=== PATIENT | female | born 1990 | race Caucasian/White ===

== ENCOUNTER 2020-12-24 23:52 | Emergency (ER) | payer MEDICAID, SELFPAY ==
[2020-12-24 23:53] VITALS: BP 139/91; PULSE 122; RESP 18; TEMP 37.2; O2SAT 96; BMI 26.6
--- NOTE | 2020-12-25 00:08 | RAD_ITS ---
STUDY: X-RAY - RIGHT FOOT CLINICAL: Female, 30 years old. abscess TECHNIQUE: 3 view(s) of the foot. COMPARISON: None. FINDINGS: Normal talus, calcaneus, and tarsal bones. Normal visualized subtalar, talonavicular, calcaneocuboid, tarsal and tarsometatarsal articulations. Normal metatarsi. Normal metatarsophalangeal joint of the great toe. Normal tibial and fibular sesamoid bones. Normal interphalangeal joint of the great toe. Normal phalanges of the great toe. Normal second through fifth metatarsophalangeal joints. Normal interphalangeal joints and phalanges of the lesser toes. The soft tissue structures are unremarkable. RAD/Foot min 3 Views IMPRESSION: Normal x-ray examination of the foot. Electronically Signed: Carlyle Alan DO at 0:41 EDT Tel , Service support ,
[2020-12-25] MEDS: Cephalexin 250 MG Capsule 500 MG PO (00:11)
[2020-12-25] MEDS: Smz/Tmp Ds Tablet 1 TABLET PO (00:11)
--- NOTE | 2020-12-25 00:11 | EDS_ITS ---
HPI History of Present Illness Chief Complaint: Abscess Informant: patient Narrative Narrative: Patient has a draining abscess on the right inner foot. Is been there for 2 weeks. She admits that she injected drugs in this area couple of weeks ago. It developed an abscess and then she drained it on her own. She now has an ulcerative wound in this area. Its worse when you touch it. It still draining a clear fluid. She denies having any fevers. [facility] Medical History Anxiety Bipolar disorder Depression Diabetes Migraines Smoker Substance abuse Home Medications cephalexin 500 mg PO Q6 #40 capsule 12/25/20 [Rx Last Taken Unknown] sulfamethoxazole-trimethoprim 1 tab PO BID #14 tablet 12/25/20 [Rx Last Taken Unknown] Allergy/AdvReac Type Severity Reaction Status Date / Time No Known Allergies Allergy Verified 12/24/20 23:56 Social History Smoking Status: Current every day smoker tobacco type: cigarettes ROS ROS ED Constitutional Constitutional ED: Denies chills or fever(s) Eyes Eyes: Denies blurry vision, change in vision or diplopia ENT ENT ED: Denies ear pain, rhinorrhea or sore throat Cardiovascular Cardiovascular: Denies chest pain or palpitations Respiratory/Chest Respiratory/Chest: Denies cough, dyspnea or sputum Gastrointestinal Gastrointestinal: Denies abdominal pain, diarrhea, nausea or vomiting Genitourinary Genitourinary ED: Denies dysuria, hematuria or urinary frequency Musculoskeletal Musculoskeletal: Denies back pain or neck pain Integumentary Reports abscess Neurologic Neurologic: Denies headache(s), numbness or weakness Psychiatric Psychiatric: Denies anxiety or depression Endocrine Endocrinology: Denies polydipsia or polyuria EXAM Physical Exam Const Vital Signs: 12/24/20 23:53 Temperature 98.9 F Temperature Source Temporal Pulse Rate 122 H Respiratory Rate 18 Blood Pressure 139/91 H Blood Pressure Mean 107 Pulse Ox 96 Oxygen Delivery Method Room Air Positive well nourished and well developed General Appearance ED: well developed HEENT Reports moist mucous membranes Negative for trauma or tenderness Eyes PERRL and EOMs intact bilaterally Extremity Extremity Narrative: The right inner midfoot has a 2 x 2 centimeter ulcerative wound with some mild surrounding erythema. There is a serous drainage noted. It is minimally tender to palpation. Neuro oriented x3 and CN's II-XII intact bilaterally Sensorium / Orientation: alert Psych mental status grossly normal Skin no rashes or lesions noted MDM MDM MDM Narrative Medical decision making narrative: The patient appears to have a drained abscess with now a wound on the foot. X-rays were negative for any bony destruction. I will place the patient on Bactrim and Keflex. She will need to follow-up with wound care. Radiography Diagnostic Testing: Radiology Impression Foot X-Ray 12/25/20 00:08 IMPRESSION: Normal x-ray examination of the foot. Electronically Signed: Carlyle Alan DO at 0:41 EDT Tel , Service support , Discharge Plan Triage Chief Complaint: Abscess ED Provider: Lester Mark Dx/Rx/DC Orders Clinical Impression: Abscess of right foot Instructions: ED Abscess Antibiotic Treatment Only Prescriptions: New sulfamethoxazole-trimethoprim [sulfamethoxazole-trimethoprim] 1 TABLET tablet 1 tab PO BID Qty: 14 RF: 0 cephalexin [cephalexin] 500 MG capsule 500 mg PO Q6 Qty: 40 RF: 0 Primary Care Provider: Anika Hatfield Referrals: Anika Hatfield MD [Primary Care Provider] - Disposition Disposition: Home, self care
[2020-12-25 00:48] VITALS: BP 121/74; PULSE 84; RESP 17; O2SAT 99
== END 2020-12-25 00:50 | disposition home or self-care (01) ==
PROVIDERS: Emergency Provider Emergency Medicine
DX: L02.611 Cutaneous abscess of right foot (principal); F17.210 Nicotine dependence, cigarettes, uncomplicated
CPT/HCPCS: 73630; 99283

== ENCOUNTER 2021-01-13 02:33 | Inpatient (IN) | payer MEDICAID, SELFPAY ==
[2021-01-13] VITALS (8 sets, daily range): BP systolic 110–132; BP diastolic 65–86; PULSE 80–116; RESP 16–18; TEMP 36.4–37.1; O2SAT 96–100; BMI 32.7; BMI 32.4
[2021-01-13 03:13] LABS: Absolute Lymphocyte Count 1.65 X10^3/uL (0.83-4.51); Absolute Neutrophil Count 4.7 X10^3/uL (2.0-7.7); Basophil# 0.02 X10^3/uL; Basophil% 0.3 % (0-1); Eosinophil# 0.02 X10^3/uL; Eosinophils% 0.3 % (0-5); Hemoglobin 12.6 g/dL (12.0-15.0); Lymphocyte # 1.65 X10^3/ul (0.83-4.51); Lymphocyte % 23.2 % (19-41); Mean Corp Hgb Conc 33.2 g/dL (32-36); Mean Corpuscular Hgb 29.2 pg (27.0-32.0); Mean Corpuscular Volume 88.2 fL (81-99); Mean Platelet Vol. 9.1 fl (6.2-12.0); Monocyte# 0.68 X10^3/uL; Monocyte% 9.6 % (0-10); NRBC Flagged by Analyzer 0 % (0-5); Neutrophil # 4.71 X10^3/uL (2.7-7.7); Neutrophil % 66.2 % (47-70); Platelet Count 289 K/mm3 (150-450); RBC Distribution Width CV 12.2 % (11.6-14.6); RBC Distribution Width SD 39.7 fl (35.1-43.9); Red Blood Count 4.31 M/mm3 (4.2-5.4); White Blood Count 7.1 K/mm3 (4.4-11.0)
[2021-01-13 03:17] LABS: Internal QC Validated? YES +Cl - CLEAR BKGD
[2021-01-13 03:20] LABS: Anion Gap 7 (5-15); BUN 9 mg/dL (7-18); BUN/Creat Ratio 14.4 RATIO (10-20); Calcium,Total 8.9 mg/dL (8.5-10.1); Chloride 106 mmol/L (98-107); Creatinine, Serum 0.63 mg/dL (0.55-1.02); EST Glomerular Filtration Rate 120 mL/min (>60); Est Glom Filt Rate - Afr Amer 145 mL/min (>60); Estimated Creatinine Clearance 128.13 ml/min; Glucose 95 mg/dL (74-106); Potassium 3.5 mmol/L (3.5-5.1); Sodium Level 142 mmol/L (136-145)
--- NOTE | 2021-01-13 03:31 | EX.ED.SAOD ---
HPI History of Present Illness Chief Complaint: Substance Abuse Narrative Narrative: Patient requesting detox from heroin and fentanyl. She stated that she injects both of these regularly. Her last usage was this evening. She has been abusing narcotics since May of last year. She also uses intermittent methamphetamines. Patient requesting detox. Denies . Denies alcohol consumption. [facility] Medical History Anxiety Bipolar disorder Depression Diabetes Migraines Smoker Substance abuse Home Medications NK 01/13/21 [History Last Taken Unknown] Allergy/AdvReac Type Severity Reaction Status Date / Time No Known Allergies Allergy Verified 01/13/21 02:38 Social History Smoking Status: Current every day smoker tobacco type: cigarettes ROS ROS ED ROS Narrative ROS General: Denies fever, chills, sweats Eyes: Denies visual changes, blurred vision, double vision ENT: Denies ear pain, rhinorrhea, sore throat Cardiovascular: Denies chest pain, palpitations, heart racing Respiratory: Denies dyspnea, cough, sputum, dyspnea on exertion, orthopnea,PND GI: Denies abdominal pain, nausea, vomiting, diarrhea, constipation, melena : Denies dysuria, hematuria, frequency Musculoskeletal: Denies myalgias, arthralgias, neck pain, back pain Skin: Denies rash, abscess, abrasions Neuro: Denies headache, weakness, paresthesia Psych: Denies depression, anxiety Endo: Denies polyuria, polydipsia, polyphagia Heme: Denies easy bruising, easy bleeding, lymphadenopathy Allergy: Denies hives, swelling EXAM Physical Exam Narrative Exam Narrative: Vital signs reviewed General: Well-nourished well-developed Head: Normocephalic atraumatic Eyes: Pupils equal round and reactive to light extraocular movements intact ENT: TMs clear no hemotympanum no trauma Neck: Nontender full range of motion Cardiovascular: Regular rate rhythm no murmurs normal S1-S2 Respiratory: No distress clear to auscultation bilaterally chest nontender Abdomen: Soft nontender nondistended normal bowel sounds no masses Back: Nontender no CVA tenderness Extremities: Nontender active range of motion ?4 extremities no trauma Skin: Tract martinez noted bilateral antecubital. No acute infection Neuro alert oriented cranial nerves II through XII intact normal strength sensation reflexes Const Vital Signs: 01/13/21 02:33 01/13/21 02:34 Temperature 97.5 F L Temperature Source Temporal Pulse Rate 116 H Respiratory Rate 18 Blood Pressure 132/86 H Blood Pressure Mean 101 Pulse Ox 96 Oxygen Delivery Method Room Air MDM MDM MDM Narrative Medical decision making narrative: Lab work obtained. CBC normal. BMP normal. Alcohol negative. negative. Toxicology screen pending. Will be admitted Lab Data Labs: Laboratory Results - last 24 hr 01/13/21 01/13/21 01/13/21 02:58 02:58 02:58 WBC 7.1 RBC 4.31 Hgb 12.6 Hct 38.0 MCV 88.2 MCH 29.2 MCHC 33.2 RDW Std Deviation 39.7 RDW Coeff of Mili 12.2 Plt Count 289 MPV 9.1 Immature Gran % (Auto) 0.400 Neut % (Auto) 66.2 Lymph % (Auto) 23.2 [place] % (Auto) 9.6 Eos % (Auto) 0.3 Baso % (Auto) 0.3 Absolute Neuts (auto) 4.7 Absolute Lymphs (auto) 1.65 Nucleated RBC % 0 Sodium 142 Potassium 3.5 Chloride 106 Carbon Dioxide 29.0 Anion Gap 7 BUN 9 Creatinine 0.63 Estim Creat Clear Calc 128.13 Est GFR (MDRD) Af Amer 145 Est GFR (MDRD) Non-Af 120 BUN/Creatinine Ratio 14.4 Glucose 95 Calcium 8.9 Serum , Qual Ur Drug Screen Comment Ethyl Alcohol 4.0 01/13/21 01/13/21 02:58 02:58 WBC RBC Hgb Hct MCV MCH MCHC RDW Std Deviation RDW Coeff of Mili Plt Count MPV Immature Gran % (Auto) Neut % (Auto) Lymph % (Auto) [place] % (Auto) Eos % (Auto) Baso % (Auto) Absolute Neuts (auto) Absolute Lymphs (auto) Nucleated RBC % Sodium Potassium Chloride Carbon Dioxide Anion Gap BUN Creatinine Estim Creat Clear Calc Est GFR (MDRD) Af Amer Est GFR (MDRD) Non-Af BUN/Creatinine Ratio Glucose Calcium Serum , Qual NEGATIVE Ur Drug Screen Comment Ethyl Alcohol Discharge Plan Triage Chief Complaint: Substance Abuse ED Provider: Earl Justin Dx/Rx/DC Orders Clinical Impression: Narcotic addiction Prescriptions: No Action NK RF: 0 Primary Care Provider: Anika Hatfiedl Referrals: Anika Hatfield MD [Primary Care Provider] - Disposition Disposition: Acute Care Hospital [facility]
--- NOTE | 2021-01-13 03:32 | PCM.HP.STD ---
HPI - General General Date of Admission: 01/13/21 Date of Service: 01/13/21 Chief Complaint: Acute Opiate withdrawal HPI Narrative The patient is a 31 y/o F w/ PMHx: Obesity, Tobacco use, Anxiety and Depression/Bipolar disorder, Migrianes, Polysubstance abuse (Heroin, Fentanyl, Meth all IV, patient does not know her daily usage), ? Diabetes mellitus type II (previously on metformin) who presents to the [facility] ED on 01/13/21 w/ noted acute opiate withdrawal onset starting earlier in the evening the day prior at ~ 11 pm with abdominal pain, generalized body aches and pains, rhinorrhea, fatigue, restless leg. Patient was recently seen in the ED on 12/25/2020 secondary to abscess of the right inner foot following injection this is on Bactrim and Keflex with improvement. Patient interested in attaining clean status. Work-up in the ED included T 97.6, heart rate 116, respiratory rate 18, 96% on room air, BP 132/86, CBC with WC 7.1, hemoglobin 12.6, platelet 289 without marked shift, BMP unremarkable, negative serum testing, UDS pending upon requested evaluation of patient, ethyl alcohol level 4. [facility] Medical History (Updated 01/13/21 @ 03:[address] Laxmi Scherer MD) Anxiety Bipolar disorder Depression Diabetes Migraines Smoker Substance abuse Home Medications NK 01/13/21 [History Last Taken Unknown] Allergy/AdvReac Type Severity Reaction Status Date / Time No Known Allergies Allergy Verified 01/13/21 02:38 Family History (Updated 01/13/21 @ 03:[address] Laxmi Scherer MD) Mother Cancer Throat cancer. Father Hypertension Blood clotting disorder Surgical History (Updated 01/13/21 @ 03:[address] Laxmi Scherer MD) History of right knee surgery S/P cholecystectomy no surgical history (ADDITIONAL SURGERIES: Left femur surgery.) Social History (Updated 01/13/21 @ 03:[address] Laxmi Scherer MD) housing: homeless current occupational status: unemployed Smoking Status: Current every day smoker tobacco type: cigarettes Smoking packs per day: 1 Smoking cigarettes per day: 20.0 Years smoked: 11 Smoking pack-years: 11.00 alcohol intake: current details: Occasional EtOH intake. substance use type: heroin, IV drugs, methamphetamine and other details: Fentanyl. ROS ROS Narrative Admission Review of Systems: CONSTITUTIONAL: No weight loss, fever, + chills, weakness or fatigue. HEENT: Eyes: No visual loss, blurred vision, double vision or yellow sclerae. Ears, Nose, Throat: No hearing loss, sneezing, congestion, runny nose or sore throat. SKIN: No rash or itching, lesions, wounds. CARDIOVASCULAR: No chest pain, chest pressure or chest discomfort, palpitations, edema, orthopnea, syncopal events. RESPIRATORY: No shortness of breath, cough or sputum, wheezing, hemoptysis. GASTROINTESTINAL: + anorexia, nausea, abdominal pain, No vomiting, diarrhea, melena, BRBPR. GENITOURINARY: No dysuria, frequency, urgency or retention. NEUROLOGICAL: No headache, dizziness, syncope, paralysis, ataxia, numbness or tingling in the extremities, focal weakness, change in bowel or bladder control, seizure. MUSCULOSKELETAL: + muscle, back pain, joint pain or stiffness. HEMATOLOGIC: No anemia, bleeding or bruising. LYMPHATICS: No enlarged nodes. No history of splenectomy. PSYCHIATRIC: + history of depression or anxiety. ENDOCRINOLOGIC: + reports of sweating, cold or heat intolerance. No polyuria or polydipsia. ALLERGIES: No history of asthma, hives, eczema or rhinitis. Vital Signs Vital Signs Vital Signs: 01/13/21 02:33 01/13/21 02:34 Temperature 97.5 F L Temperature Source Temporal Pulse Rate 116 H Respiratory Rate 18 Blood Pressure 132/86 H Blood Pressure Mean 101 Pulse Ox 96 Oxygen Delivery Method Room Air Weight Weight: 208 lb 12.444 oz Body Mass Index (BMI) 32.7 Physical Exam Narrative Physical Examination: General: Awake, alert, oriented x 3 and cooperative, seated upright in the bed, fatigued, yawning, mildly restless additionally. Skin: Normal color, normal turgor, no icterus, no cyanosis except noted right inner foot status post treatment for recent abscess, healing well, no fluctuance, no drainage, track martinez to upper extremities as well. HEENT: AT/NC, EOMI, PERRLA, dry MM, no carotid bruits or JVD noted. Lungs: CTA bilaterally, moderate effort, mild decrease BL bases, no rales, ronchi or wheezing. Heart: Tachycardic with regular rhythm; no gallop, rub audible. Abdomen: Soft, mild generalized discomfort with palpation with no rebound or guarding, ND, moderately hyperactive BS, no HSM. Extremities: No cyanosis, clubbing, or edema. Neurological: Patient awake, alert, oriented as noted, cognitive function intact; pupils equally reactive to light and accommodation, cranial nerves II-XII grossly normal, moving all 4 extremities, no focal deficits, strength moderately global decrease secondary to acute presentation. Psychiatric: Affect appears fatigued, periods of restlessness, no acute evidence of depressive or anxiety feelings. Results Lab / Micro Data Result Diagrams: 01/13/21 02:58 01/13/21 02:58 Labs: Laboratory Results - last 24 hr 01/13/21 01/13/21 01/13/21 02:58 02:58 02:58 WBC 7.1 RBC 4.31 Hgb 12.6 Hct 38.0 MCV 88.2 MCH 29.2 MCHC 33.2 RDW Std Deviation 39.7 RDW Coeff of Mili 12.2 Plt Count 289 MPV 9.1 Immature Gran % (Auto) 0.400 Neut % (Auto) 66.2 Lymph % (Auto) 23.2 [place] % (Auto) 9.6 Eos % (Auto) 0.3 Baso % (Auto) 0.3 Absolute Neuts (auto) 4.7 Absolute Lymphs (auto) 1.65 Nucleated RBC % 0 Sodium 142 Potassium 3.5 Chloride 106 Carbon Dioxide 29.0 Anion Gap 7 BUN 9 Creatinine 0.63 Estim Creat Clear Calc 128.13 Est GFR (MDRD) Af Amer 145 Est GFR (MDRD) Non-Af 120 BUN/Creatinine Ratio 14.4 Glucose 95 Calcium 8.9 Serum , Qual Ur Drug Screen Comment Ethyl Alcohol 4.0 01/13/21 01/13/21 02:58 02:58 WBC RBC Hgb Hct MCV MCH MCHC RDW Std Deviation RDW Coeff of Mili Plt Count MPV Immature Gran % (Auto) Neut % (Auto) Lymph % (Auto) [place] % (Auto) Eos % (Auto) Baso % (Auto) Absolute Neuts (auto) Absolute Lymphs (auto) Nucleated RBC % Sodium Potassium Chloride Carbon Dioxide Anion Gap BUN Creatinine Estim Creat Clear Calc Est GFR (MDRD) Af Amer Est GFR (MDRD) Non-Af BUN/Creatinine Ratio Glucose Calcium Serum , Qual NEGATIVE Ur Drug Screen Comment Ethyl Alcohol Assessment & Plan Assessment/Plan (1) Opiate withdrawal: PLAN: The patient is a 31 y/o F w/ PMHx: Obesity, Tobacco use, Anxiety and Depression/Bipolar disorder, Migrianes, Polysubstance abuse (Heroin, Fentanyl, Meth) who presents to the [facility] ED on 01/13/21 w/ noted acute opiate withdrawal onset. 1. Acute Opiate Withdrawal: Will admit to [facility], routine labs including CBC, CMP, urine for drug screen obtained in the ED, will initiate and continue on protocol with tapering course of Subutex, as needed tylenol, ibuprofen, bowel regimen, gabapentin, Bentyl, Vistaril, methocarbamol, clonidine, PRN nightly trazodone for insomnia, IV fluids, IV antiemetics. Once patient clinically improved and completion of taper nearing will plan consultation with case management for transition to next level of rehabilitation care. 2. Polysubstance Abuse, IVDA Hx: Given patient IV drug use history will obtain HIV and hepatitis panel however patient currently not candidate for hep C treatment currently as needs to be clean, sober x 6 months, documented attendance NA or AA meetings, counseling and ongoing negative drug screens. 3. Questionable Diabetes mellitus type II: Noted in history, not on regimen, will obtain hemoglobin A1c, maintain until clarified on regular diet given presentation and will defer Accu-Chek with sliding scale. If A1c appropriate we will add Accu-Cheks with insulin sliding scale and transition to ADA diet. 4. Anxiety depression/bipolar disorder: Likely contributing to substance abuse history, not on regimen, will follow up with counseling and 180 with addition of regimen and counseling if appropriate. 5. Obesity: Weight loss and lifestyle changes encouraged. 6. Tobacco Abuse: Encouraged cessation, inpatient consultation per RT, NR if desired. 7. DVT prophylaxis: Low risk, encourage ambulation. Charges/Coding Visit Charges Inpatient E&M: 38330 Init Hosp L3
[2021-01-13 03:34] LABS: Pregnancy, Serum, hCG Quali. NEGATIVE Negative (0-9 Nonpreg)
[2021-01-13 03:59] LABS: Amphetamine Urine VISTA POSITIVE (<1000 ng/mL); Barbiturate Urine VISTA NEGATIVE (< 200 ng/mL); Benzodiazepine Urine VISTA NEGATIVE (< 200 ng/mL); Cocaine Urine VISTA POSITIVE (< 300 ng/mL); Ecstacy Urine VISTA POSITIVE (< 500 ng/mL); Methadone Urine VISTA NEGATIVE (< 300 ng/mL); PCP Urine VISTA NEGATIVE (< 25 ng/mL); THC Urine VISTA POSITIVE (< 50 ng/mL); Vista UDS pH Range 6
[2021-01-13] MEDS: Methocarbamol 750 MG Tablet 1500 MG PO ×3 (04:44→21:12)
[2021-01-13 04:53] LABS: HIV - WCH Non-Reactive (Nonreactive)
[2021-01-13] MEDS: Cephalexin 500 MG Capsule PO ×4 (06:00→23:59)
[2021-01-13] MEDS: Buprenorphine HCl 2 MG TAB.SUBL SL ×3 (06:00→21:12)
[2021-01-13 07:13] LABS: Hemoglobin A1c 5.2 % (3.8-5.6)
--- NOTE | 2021-01-13 07:55 | PN.HOSP_ITS ---
Subjective Subjective Patient seen and examined. She complains of also on her left foot which is due to IV drug use. She was on antibiotics on outpatient basis patient states that she has noticed some discharge from the ulcer. She also has a developing ulcer on her right forearm also due to IV drug use. She denies any fever or chills. Objective Data Objective Data Vital Signs: Vital Signs Temp Pulse Resp BP Pulse Ox 97.9 F 97 16 128/77 H 98 01/13/21 05:01 01/13/21 05:01 01/13/21 05:01 01/13/21 05:01 01/13/21 05:01 Oxygen Delivery Method Room Air Weight: 207 lb 3.752 oz Body Mass Index (BMI) 32.4 Lab / Micro Data Result Diagrams: 01/13/21 02:58 01/13/21 02:58 Labs: Laboratory Results - last 24 hr 01/13/21 01/13/21 01/13/21 02:58 02:58 02:58 WBC 7.1 RBC 4.31 Hgb 12.6 Hct 38.0 MCV 88.2 MCH 29.2 MCHC 33.2 RDW Std Deviation 39.7 RDW Coeff of Mili 12.2 Plt Count 289 MPV 9.1 Immature Gran % (Auto) 0.400 Neut % (Auto) 66.2 Lymph % (Auto) 23.2 [place] % (Auto) 9.6 Eos % (Auto) 0.3 Baso % (Auto) 0.3 Absolute Neuts (auto) 4.7 Absolute Lymphs (auto) 1.65 Nucleated RBC % 0 Sodium 142 Potassium 3.5 Chloride 106 Carbon Dioxide 29.0 Anion Gap 7 BUN 9 Creatinine 0.63 Estim Creat Clear Calc 128.13 Est GFR (MDRD) Af Amer 145 Est GFR (MDRD) Non-Af 120 BUN/Creatinine Ratio 14.4 Glucose 95 Hemoglobin A1c Calcium 8.9 Serum , Qual Urine Opiates Screen Urine Methadone Screen Ur Barbiturates Screen Ur Phencyclidine Scrn Ur Amphetamines Screen U Methamphetamin-MDMA U Benzodiazepines Scrn Urine Cocaine Screen U Cannabinoids Screen Ur Drug Screen Comment Ethyl Alcohol 4.0 HIV 1&2 Antibody 01/13/21 01/13/21 01/13/21 02:58 02:58 02:58 WBC RBC Hgb Hct MCV MCH MCHC RDW Std Deviation RDW Coeff of Mili Plt Count MPV Immature Gran % (Auto) Neut % (Auto) Lymph % (Auto) [place] % (Auto) Eos % (Auto) Baso % (Auto) Absolute Neuts (auto) Absolute Lymphs (auto) Nucleated RBC % Sodium Potassium Chloride Carbon Dioxide Anion Gap BUN Creatinine Estim Creat Clear Calc Est GFR (MDRD) Af Amer Est GFR (MDRD) Non-Af BUN/Creatinine Ratio Glucose Hemoglobin A1c 5.2 Calcium Serum , Qual NEGATIVE Urine Opiates Screen POSITIVE H Urine Methadone Screen NEGATIVE Ur Barbiturates Screen NEGATIVE Ur Phencyclidine Scrn NEGATIVE Ur Amphetamines Screen POSITIVE H U Methamphetamin-MDMA POSITIVE H U Benzodiazepines Scrn NEGATIVE Urine Cocaine Screen POSITIVE H U Cannabinoids Screen POSITIVE H Ur Drug Screen Comment Ethyl Alcohol HIV 1&2 Antibody 01/13/21 02:58 WBC RBC Hgb Hct MCV MCH MCHC RDW Std Deviation RDW Coeff of Mili Plt Count MPV Immature Gran % (Auto) Neut % (Auto) Lymph % (Auto) [place] % (Auto) Eos % (Auto) Baso % (Auto) Absolute Neuts (auto) Absolute Lymphs (auto) Nucleated RBC % Sodium Potassium Chloride Carbon Dioxide Anion Gap BUN Creatinine Estim Creat Clear Calc Est GFR (MDRD) Af Amer Est GFR (MDRD) Non-Af BUN/Creatinine Ratio Glucose Hemoglobin A1c Calcium Serum , Qual Urine Opiates Screen Urine Methadone Screen Ur Barbiturates Screen Ur Phencyclidine Scrn Ur Amphetamines Screen U Methamphetamin-MDMA U Benzodiazepines Scrn Urine Cocaine Screen U Cannabinoids Screen Ur Drug Screen Comment Ethyl Alcohol HIV 1&2 Antibody Non-Reactive Physical Exam Const alert, oriented x3 and no apparent distress Exam Limitations: no limitations HEENT head/scalp atraumatic and moist oral mucous membranes Head and Scalp: normocephalic Eyes PERRL, EOMs intact bilaterally and conjunctivae normal Neck no lymphadenopathy Resp normal respiratory effort, no retractions, no use of accessory muscles and clear to auscultation bilaterally Cardio regular rate, regular rhythm, S1 normal heart sound, S2 normal heart sound and n o murmurs GI normal to inspection, nondistended, normoactive bowel sounds, soft to palpation and non-tender Extremity normal to inspection, full ROM and no clubbing, cyanosis or edema Peripheral Pulses: Yes pulses 2+ throughout Skin no rashes or lesions noted, no wounds and skin turgor normal Neuro oriented x3 Sensorium / Orientation: awake and alert Psych affect normal Assessment & Plan Assessment/Plan (1) Opiate withdrawal: (2) Narcotic addiction: PLAN: #Acute opioid withdrawal * on opioid withdrawal protocol with buprenorphine * monitor CINA score * adjunctive medications for symptomatic treatment * #Cellulitis with abscess formation of the left foot and RUE * left foot has a superficial ulceration with surrounding erythema * get wound care consult * start on PO doxycycline #Type 2 diabetes mellitus * Not on any medication. A1c pending. States she takes a regular diet at home. Will await A1c * #Anxiety and depression and bipolar disorder: * Not on any medication. * Follow-up with PCP on outpatient basis referral to the psychiatrist as needed * #Nicotine dependence: counseled to quit DVT prophylaxis: Low risk. Encourage ambulation. Charges/Coding Visit Charges Inpatient E&M: 90148 Subs Hosp L2
[2021-01-13] MEDS: Smz/Tmp Ds Tablet 1 TABLET PO ×2 (08:22→16:20)
[2021-01-13] MEDS: Gabapentin 300 MG Capsule PO ×2 (10:16→18:14)
[2021-01-13] MEDS: cloNIDine HCl 0.1 MG Tablet PO ×2 (10:16→18:14)
--- NOTE | 2021-01-13 10:25 | EX.NTREPO ---
Medical Nutrition Therapy - History Nutrition Services has been consulted to:: Manage nutrient details of diet order Current diet/nutrition support order:: Regular, 3 snacks per day. Ensure Enlive 120 ml 4x/day - Anthropometric Measurements Height:: 5 ft 7 in Weight:: 94 kg Body Mass Index (BMI):: 32.4 - Assessment Food and Nutrient Intake: States wt loss 100# x 1 year- notes some of it was intentional but it was mostly unintentional relates wt loss d/t changes in my eating & lifestyle. CBW 207.2 lbs- 31% wt loss x 1 year- no wt hx per EMR. Not appropriate for NFPE at this time: upon visual observation no s/s of muscle/fat wasting. Relates clothes have been fitting looser or not at all since wt loss. Viewed b-fast tray consumed <25% of meal. Pt reports decreased appetite/intake unable to recall when began- notes typically eating 2 meals per day however consuming about half of meals. Likely prolonged poor intake due to opiate use. Denies N/V/D/C. Reports family hx of Diabetes and at the age of 17-18 yrs went to process pumper who put pt on Metformin- ? official DM dx- pt no longer taking Metformin, no SMBG. - Nutrition Diagnosis: Clinical Problem Chronic Disease or Condition Related Malnutrition Clinical Problem - Etiology: Moderate Malnutrition in the context of Social/behavioral circumstances related to unintentional wt loss and inadequate energy intake Clinical Problem - Signs/Symptoms: as evidenced by pt reports unintentional wt loss 100#/31% x 1 year d/t changes in eating habits & lifestyle, clothes fitting looser or not at all, states consuming 50% energy intake at 2 meals per day compared to estimated energy needs x unknown timeframe. Status: Active Problem - Protein Calorie Malnutrition Evidence of Malnutrition Exists: Yes Moderate Protein Calorie Malnutrition: Social/Behavioral/Environmental - Nutrition Intervention Nutrition Prescription: 8179-7937 calories (RMR x 1.3, minus 250 calories). 65-75 grams protein (0.8 grams/kg). 4287-5129 ml fluid (30 ml/kg) - Food / Nutrient Delivery Interventions Nutrition support ordered as / adjusted to:: Continue regular diet w/ 3 snacks per day. Continue Ensure Enlive 120 ml w/ medpass. - MNT Monitoring Active Nutrition Patient: Yes Nutrition Status: Requires Follow Up 3-5 Days
--- NOTE | 2021-01-13 10:36 | ADDICTION ---
This caption writer met with PT to conduct ASAM, MSE, DUDIT assessments and to plan for d/c. PT A+Ox4 but reported experiencing significant withdrawal symptoms including uncontrollable shaking. This caption writer informed PT's nurse who followed up with PT and provided comfort medication to assist with sx management. This caption writer was able to meet with PT and completed all assessments, faxed assessments to [facility] and placed in PT's chart. PT not interested in d/c planning and noted that she will follow up independently. This caption writer provided resources for treatment agencies in [facility], per PT request. This caption writer also allowed PT to call [address] to verify that she did not miss a court appointment today. Court confirmed that she did not have a court date scheduled for today.
[2021-01-13] MEDS: Doxycycline 100 MG CAPSULE PO ×2 (14:08→21:12)
[2021-01-13] MEDS: hydrOXYzine PAM 25 MG Capsule 50 MG PO ×2 (14:17→21:12)
--- NOTE | 2021-01-13 14:53 | NURSING ---
wound photo: right medial foot
--- NOTE | 2021-01-13 16:00 | CASEMGMT ---
Social Work Note ELISE received a call from Bia with [facility] [employer] ([employer]). Bia states that she needs to speak to pt as pt has custody of her child [place] and Benji is considered to be a dependent child of the pt meaning the outside world has no communication with him and [place] could need medical treatment. SW in to speak with pt. ELISE introduced self and role at [facility]. SW explained strand galvanizer from [facility] C[employer] is requesting to speak with pt. Pt signed Release of Information (FANNY) for [facility]. ELISE placed FANNY on chart. Pt agreeable to speaking with Bia. ELISE provided pt with this worker's portable phone and allowed pt to speak with Bia. After pt was done speaking with Bia, ELISE asked pt how she is doing after conversation with CPS. Pt states she was unaware she had a CPS case, confirms she has a child named Benji who is 8 years old. Pt states she has primary custody of [place] but [place] is currently with his father. Pt states she last saw Benji in the beginning on December. ELISE offered support to pt. Pt denied any history of suicidal thoughts/plans/ideations. Pt denied any current suicidal thoughts/plans/ideations. Ting Cordova BEAM RACKER, INSPECTOR WIRE ROPE
[2021-01-13] MEDS: Ibuprofen 600 MG Tablet PO (16:24)
[2021-01-13 17:00] LABS: M R Staph aureus DNA By PCR POSITIVE (Negative); Probe Check PASS; Staph aureus DNA By PCR POSITIVE (Negative)
[2021-01-13] MEDS: traZODone 100 MG Tablet PO (21:12)
[2021-01-14 04:30] VITALS: BP 122/76; PULSE 81; RESP 16; TEMP 36.9; O2SAT 97
[2021-01-14] MEDS: Cephalexin 500 MG Capsule PO (05:20)
[2021-01-14] MEDS: Buprenorphine HCl 2 MG TAB.SUBL SL ×3 (05:20→20:16)
[2021-01-14 06:54] LABS: Absolute Lymphocyte Count 1.64 X10^3/uL (0.83-4.51); Absolute Neutrophil Count 2.2 X10^3/uL (2.0-7.7); Basophil# 0.01 X10^3/uL; Basophil% 0.2 % (0-1); Eosinophil# 0.06 X10^3/uL; Eosinophils% 1.4 % (0-5); Hematocrit 36.5 % (37-47); Hemoglobin 12.1 g/dL (12.0-15.0); Lymphocyte # 1.64 X10^3/ul (0.83-4.51); Lymphocyte % 37.7 % (19-41); Mean Corp Hgb Conc 33.2 g/dL (32-36); Mean Corpuscular Hgb 29.3 pg (27.0-32.0); Mean Corpuscular Volume 88.4 fL (81-99); Mean Platelet Vol. 9.1 fl (6.2-12.0); Monocyte# 0.48 X10^3/uL; NRBC Flagged by Analyzer 0 % (0-5); Neutrophil # 2.15 X10^3/uL (2.7-7.7); Neutrophil % 49.5 % (47-70); Platelet Count 262 K/mm3 (150-450); RBC Distribution Width CV 12.6 % (11.6-14.6); RBC Distribution Width SD 40.4 fl (35.1-43.9); Red Blood Count 4.13 M/mm3 (4.2-5.4); White Blood Count 4.4 K/mm3 (4.4-11.0)
[2021-01-14] MEDS: Gabapentin 300 MG Capsule PO ×2 (07:19→18:51)
[2021-01-14] MEDS: Smz/Tmp Ds Tablet 1 TABLET PO (07:20)
[2021-01-14 07:24] LABS: Anion Gap 5 (5-15); BUN 7 mg/dL (7-18); BUN/Creat Ratio 11.2 RATIO (10-20); Calcium,Total 8.9 mg/dL (8.5-10.1); Chloride 112 mmol/L (98-107); Creatinine, Serum 0.63 mg/dL (0.55-1.02); EST Glomerular Filtration Rate 119 mL/min (>60); Est Glom Filt Rate - Afr Amer 145 mL/min (>60); Estimated Creatinine Clearance 128.13 ml/min; Glucose 95 mg/dL (74-106); Potassium 3.4 mmol/L (3.5-5.1); Sodium Level 140 mmol/L (136-145)
--- NOTE | 2021-01-14 07:54 | PN.HOSP_ITS ---
Subjective Subjective Patient seen and examined. He had an uneventful night and has no complaints this morning. Review of systems otherwise negative. She has remained hemodynamically stable. Objective Data Objective Data Vital Signs: Vital Signs Temp Pulse Resp BP Pulse Ox 98.4 F 81 16 122/76 H 97 01/14/21 04:30 01/14/21 04:30 01/14/21 04:30 01/14/21 04:30 01/14/21 04:30 Oxygen Delivery Method Room Air Weight: 207 lb 3.752 oz Body Mass Index (BMI) 32.4 Intake & Output: Intake and Output for Last 24 Hours 01/12/21 01/13/21 01/14/21 23:59 23:59 23:59 Intake Total 780 / 780 200 / 200 Balance 780 / 780 200 / 200 Lab / Micro Data Result Diagrams: 01/14/21 06:35 01/14/21 06:35 Labs: Laboratory Results - last 24 hr 01/13/21 01/14/21 01/14/21 08:20 06:35 06:35 WBC 4.4 RBC 4.13 L Hgb 12.1 Hct 36.5 L MCV 88.4 MCH 29.3 MCHC 33.2 RDW Std Deviation 40.4 RDW Coeff of Mili 12.6 Plt Count 262 MPV 9.1 Immature Gran % (Auto) 0.200 Neut % (Auto) 49.5 Lymph % (Auto) 37.7 Gallia % (Auto) 11.0 H Eos % (Auto) 1.4 Baso % (Auto) 0.2 Absolute Neuts (auto) 2.2 Absolute Lymphs (auto) 1.64 Nucleated RBC % 0 Sodium 140 Potassium 3.4 L Chloride 112 H Carbon Dioxide 23.0 Anion Gap 5 BUN 7 Creatinine 0.63 Estim Creat Clear Calc 128.13 Est GFR (MDRD) Af Amer 145 Est GFR (MDRD) Non-Af 119 BUN/Creatinine Ratio 11.2 Glucose 95 Calcium 8.9 S.aureus Protein A PCR POSITIVE H MRSA (PCR) POSITIVE H Physical Exam Const alert, oriented x3 and no apparent distress Exam Limitations: no limitations HEENT head/scalp atraumatic and moist oral mucous membranes Head and Scalp: normocephalic Eyes PERRL, EOMs intact bilaterally and conjunctivae normal Neck no lymphadenopathy Resp normal respiratory effort, no retractions, no use of accessory muscles and clear to auscultation bilaterally Cardio regular rate, regular rhythm, S1 normal heart sound, S2 normal heart sound and no murmurs GI normal to inspection, nondistended, normoactive bowel sounds, soft to palpation and non-tender Extremity normal to inspection, full ROM and no clubbing, cyanosis or edema Peripheral Pulses: Yes pulses 2+ throughout Skin Skin Narrative: has superficial ulcer over left medial malleolus, with little slough in the floor of the ulcer, and with surrounding erythema. Neuro oriented x3 Sensorium / Orientation: awake and alert Psych affect normal Assessment & Plan Assessment/Plan (1) Opiate withdrawal: (2) Narcotic addiction: PLAN: #Acute opioid withdrawal * on opioid withdrawal protocol with buprenorphine * monitor CINA score * adjunctive medications for symptomatic treatment * #Cellulitis of the left foot and RUE * wound care on board * get wound care consult * on PO doxycycline #Type 2 diabetes mellitus * Not on any medication. A1C is 5.2, so patient doesnt meet criteria for diabetes mellitus. * * #Anxiety and depression and bipolar disorder: * Not on any medication. * Follow-up with PCP on outpatient basis referral to the psychiatrist as needed * #Nicotine dependence: counseled to quit DVT prophylaxis: Low risk. Encourage ambulation. Charges/Coding Visit Charges Inpatient E&M: 63248 Subs Hosp L2
[2021-01-14 08:04] VITALS: O2SAT 97
[2021-01-14] MEDS: Doxycycline 100 MG CAPSULE PO ×2 (10:08→20:17)
[2021-01-14 10:14] VITALS: BP 108/68; PULSE 85; RESP 16; TEMP 36.5; O2SAT 96
--- NOTE | 2021-01-14 11:33 | NS ---
Per RN Marshall, pt refusing Ensure and willing to try Ensure Pudding or Magic Cup (chocolate) instead. Orders adjusted and kitchen staff notified. Lilly Westfall MS, RDN, LD
[2021-01-14] MEDS: Methocarbamol 750 MG Tablet 1500 MG PO ×2 (12:18→18:50)
--- NOTE | 2021-01-14 12:25 | CASEMGMT ---
Social Work Note SW reviewed assessment completed by Alexia. Pt is currently homeless. SW in to speak with pt. Pt states she thinks she has a place to go to at discharge. SW provided pt with Housing resources for both [place] and [place]. Pt thanked this worker, denied additional needs or concerns. Ting Cordova GANG LEADER, SALESPERSON SEWING MACHINES
[2021-01-14 15:38] VITALS: BP 108/77; PULSE 89; RESP 16; TEMP 36.6; O2SAT 99
[2021-01-14] MEDS: cloNIDine HCl 0.1 MG Tablet PO (15:55)
[2021-01-14 19:51] VITALS: BP 118/69; PULSE 87; RESP 18; TEMP 37.1; O2SAT 99
[2021-01-14] MEDS: Ibuprofen 600 MG Tablet PO (20:15)
[2021-01-14] MEDS: traZODone 100 MG Tablet PO (20:15)
[2021-01-14] MEDS: hydrOXYzine PAM 25 MG Capsule 50 MG PO (20:16)
[2021-01-14] MEDS: Ondansetron 8 MG Tablet PO (20:16)
[2021-01-15 03:15] VITALS: BP 97/60; PULSE 88; RESP 16; TEMP 36.9; O2SAT 99
[2021-01-15] MEDS: Methocarbamol 750 MG Tablet 1500 MG PO ×3 (03:23→15:15)
[2021-01-15] MEDS: Acetaminophen 325 MG Tablet 650 MG PO ×2 (03:23→21:09)
[2021-01-15] MEDS: Buprenorphine HCl 2 MG TAB.SUBL SL ×2 (05:02→18:07)
[2021-01-15 06:15] LABS: Absolute Lymphocyte Count 2.37 X10^3/uL (0.83-4.51); Absolute Neutrophil Count 2.2 X10^3/uL (2.0-7.7); Basophil# 0.01 X10^3/uL; Basophil% 0.2 % (0-1); Eosinophil# 0.06 X10^3/uL; Eosinophils% 1.2 % (0-5); Hematocrit 36.1 % (37-47); Lymphocyte # 2.37 X10^3/ul (0.83-4.51); Lymphocyte % 46.4 % (19-41); Mean Corp Hgb Conc 33.2 g/dL (32-36); Mean Corpuscular Hgb 29.6 pg (27.0-32.0); Mean Corpuscular Volume 88.9 fL (81-99); Mean Platelet Vol. 8.9 fl (6.2-12.0); Monocyte# 0.42 X10^3/uL; Monocyte% 8.2 % (0-10); NRBC Flagged by Analyzer 0 % (0-5); Neutrophil # 2.24 X10^3/uL (2.7-7.7); Neutrophil % 43.8 % (47-70); Platelet Count 282 K/mm3 (150-450); RBC Distribution Width CV 12.5 % (11.6-14.6); RBC Distribution Width SD 40.7 fl (35.1-43.9); Red Blood Count 4.06 M/mm3 (4.2-5.4); White Blood Count 5.1 K/mm3 (4.4-11.0)
[2021-01-15 06:45] LABS: Anion Gap 6 (5-15); BUN 10 mg/dL (7-18); BUN/Creat Ratio 14.7 RATIO (10-20); Calcium,Total 8.5 mg/dL (8.5-10.1); Chloride 110 mmol/L (98-107); Creatinine, Serum 0.68 mg/dL (0.55-1.02); EST Glomerular Filtration Rate 109 mL/min (>60); Est Glom Filt Rate - Afr Amer 132 mL/min (>60); Estimated Creatinine Clearance 118.71 ml/min; Glucose 116 mg/dL (74-106); Potassium 3.6 mmol/L (3.5-5.1); Sodium Level 142 mmol/L (136-145)
[2021-01-15 09:43] VITALS: BP 104/61; PULSE 82; RESP 18; TEMP 36.4; O2SAT 97
[2021-01-15] MEDS: Doxycycline 100 MG CAPSULE PO ×2 (09:48→21:09)
[2021-01-15 09:50] VITALS: PULSE 80
[2021-01-15] MEDS: Gabapentin 300 MG Capsule PO ×2 (09:51→18:07)
--- NOTE | 2021-01-15 12:02 | PN.HOSP_ITS ---
Subjective Subjective Patient seen and examined. She feels well today and has no complaints. Review of systems otherwise negative. She has remained hemodynamically stable. Objective Data Objective Data Vital Signs: Vital Signs Temp Pulse Resp BP Pulse Ox 97.5 F L 80 18 104/61 97 01/15/21 09:43 01/15/21 09:50 01/15/21 09:43 01/15/21 09:43 01/15/21 09:43 Oxygen Delivery Method Room Air Weight: 207 lb 3.752 oz Body Mass Index (BMI) 32.4 Intake & Output: Intake and Output for Last 24 Hours 01/13/21 01/14/21 01/15/21 23:59 23:59 23:59 Intake Total 780 / 780 200 / 400 400 / 400 Balance 780 / 780 200 / 400 400 / 400 Lab / Micro Data Result Diagrams: 01/15/21 05:55 01/15/21 05:55 Labs: Laboratory Results - last 24 hr 01/15/21 01/15/21 05:55 05:55 WBC 5.1 RBC 4.06 L Hgb 12.0 Hct 36.1 L MCV 88.9 MCH 29.6 MCHC 33.2 RDW Std Deviation 40.7 RDW Coeff of Mili 12.5 Plt Count 282 MPV 8.9 Immature Gran % (Auto) 0.200 Neut % (Auto) 43.8 L Lymph % (Auto) 46.4 H Stokes % (Auto) 8.2 Eos % (Auto) 1.2 Baso % (Auto) 0.2 Absolute Neuts (auto) 2.2 Absolute Lymphs (auto) 2.37 Nucleated RBC % 0 Sodium 142 Potassium 3.6 Chloride 110 H Carbon Dioxide 26.0 Anion Gap 6 BUN 10 Creatinine 0.68 Estim Creat Clear Calc 118.71 Est GFR (MDRD) Af Amer 132 Est GFR (MDRD) Non-Af 109 BUN/Creatinine Ratio 14.7 Glucose 116 H Calcium 8.5 Physical Exam Const alert, oriented x3 and no apparent distress Exam Limitations: no limitations HEENT head/scalp atraumatic and moist oral mucous membranes Head and Scalp: normocephalic Eyes PERRL, EOMs intact bilaterally and conjunctivae normal Neck no lymphadenopathy Resp normal respiratory effort, no retractions, no use of accessory muscles and clear to auscultation bilaterally Cardio regular rate, regular rhythm, S1 normal heart sound, S2 normal heart sound and no murmurs GI normal to inspection, nondistended, normoactive bowel sounds, soft to palpation and non-tender Extremity normal to inspection, full ROM and no clubbing, cyanosis or edema Peripheral Pulses: Yes pulses 2+ throughout Skin no rashes or lesions noted, no wounds and skin turgor normal Skin Narrative: dressing over right ankle ulcer. cellulitic area over Right forearm has improved markedly Neuro oriented x3 Sensorium / Orientation: awake and alert Psych affect normal Assessment & Plan Assessment/Plan (1) Opiate withdrawal: (2) Narcotic addiction: PLAN: #Acute opioid withdrawal * on opioid withdrawal protocol with buprenorphine * monitor CINA score * adjunctive medications for symptomatic treatment * feels much better today * #Cellulitis of the reft foot and RUE * wound care on board * has improved markedly * on PO doxycycline #Type 2 diabetes mellitus * Not on any medication. A1C is 5.2, so patient doesnt meet criteria for diabetes mellitus. * * #Anxiety and depression and bipolar disorder: * Not on any medication. * Follow-up with PCP on outpatient basis referral to the psychiatrist as needed * #Nicotine dependence: counseled to quit DVT prophylaxis: Low risk. Encourage ambulation. Disposition: for DC tomorrow Charges/Coding Visit Charges Inpatient E&M: 76114 Subs Hosp L2
[2021-01-15] MEDS: Ondansetron 8 MG Tablet PO (12:49)
[2021-01-15] MEDS: hydrOXYzine PAM 25 MG Capsule 50 MG PO ×2 (12:49→21:09)
[2021-01-15 15:08] VITALS: BP 115/79; PULSE 68; RESP 16; TEMP 36.8; O2SAT 98
[2021-01-15] MEDS: cloNIDine HCl 0.1 MG Tablet PO (15:15)
[2021-01-15] MEDS: Ibuprofen 600 MG Tablet PO (15:15)
--- NOTE | 2021-01-15 16:20 | CASEMGMT ---
Social Work Note Pt is to discharge tomorrow. ELISE placed a call to [facility] CPS and spoke with Juan Luis and updated her that pt is going to be discharged tomorrow. Ting Cordova INSOLE AND HEEL STIFFENER, CHICKEN PICKER
[2021-01-15 21:05] VITALS: BP 113/71; PULSE 67; RESP 16; TEMP 36.8; O2SAT 96
[2021-01-15] MEDS: traZODone 100 MG Tablet PO (21:09)
[2021-01-16 05:00] VITALS: BP 108/75; PULSE 69; RESP 16; TEMP 36.9; O2SAT 95
[2021-01-16] MEDS: Methocarbamol 750 MG Tablet 1500 MG PO (05:44)
[2021-01-16 07:27] VITALS: O2SAT 91
[2021-01-16 08:10] VITALS: BP 109/70; PULSE 72; RESP 16; TEMP 36.6; O2SAT 98
--- NOTE | 2021-01-16 08:20 | PCM.DC ---
Discharge Instructions Diet Discharge Diet: No restrictions Activity Discharge Activity: Return to Normal Activity Dressing / Incision Call your doctor if you observe: Fever of 101 or Higher, Shortness of breath, Dizziness, Swelling in the ankles, Chest pain and Increased palpitations (irregular heartbeat) Follow Up Care Test Results: Test results from this visit will be discussed in further detail at your follow-up appointment, if applicable. Discharge Plan Admission Admit Date/Time: 01/13/21 03:39 Attending Provider: Earl Ram Primary Care Provider: Anika Hatfield Discharge Orders/Prescriptions Prescriptions: Discontinued sulfamethoxazole-trimethoprim [Bactrim DS] 800-160 mg Tablet 1 tab PO BID RF: 0 cephalexin [Keflex] 500 mg Capsule 500 mg PO Q6H RF: 0 Referrals / Follow Up: Anika Hatfield MD [Primary Care Provider] - Disposition Disposition (needs filled in before D/C Order can be placed): Home, Self Care
[2021-01-16] MEDS: hydrOXYzine PAM 25 MG Capsule 50 MG PO (08:22)
[2021-01-16] MEDS: Doxycycline 100 MG CAPSULE PO (08:22)
[2021-01-16] MEDS: cloNIDine HCl 0.1 MG Tablet PO (08:22)
--- NOTE | 2021-01-16 09:50 | PCM.DC.SUM ---
Providers Date of Admission: 01/13/21 Primary Care Physician: Dr. Anika Hatfield MD Consultations 01/13/21 14:35 Consult: Onc/Wound/export sales assistant Routine Comment: Reason for Consult:: right foot abscess Reason For Visit: ACUTE OPIATE WITHDRAWAL Diagnosis Discharge Diagnosis (1) Opiate withdrawal: Status: Acute Code(s): F11.23 - Opioid dependence with withdrawal (2) Narcotic addiction: Status: Acute Code(s): F11.20 - Opioid dependence, uncomplicated Medications at Discharge Home Medications doxycycline monohydrate 100 mg PO BID #10 cap 01/16/21 Hospital Course Operations None Procedures None Summary of Care Provided Minutes Spent on Discharge: 35 Hospital Course: Per HPI: The patient is a 31 y/o F w/ PMHx: Obesity, Tobacco use, Anxiety and Depression/Bipolar disorder, Migrianes, Polysubstance abuse (Heroin, Fentanyl, Meth all IV, patient does not know her daily usage), ? Diabetes mellitus type II (previously on metformin) who presents to the [facility] ED on 01/13/21 w/ noted acute opiate withdrawal onset starting earlier in the evening the day prior at ~ 11 pm with abdominal pain, generalized body aches and pains, rhinorrhea, fatigue, restless leg. Patient was recently seen in the ED on 12/25/2020 secondary to abscess of the right inner foot following injection this is on Bactrim and Keflex with improvement. Patient interested in attaining clean status. Work-up in the ED included T 97.6, heart rate 116, respiratory rate 18, 96% on room air, BP 132/86, CBC with WC 7.1, hemoglobin 12.6, platelet 289 without marked shift, BMP unremarkable, negative serum testing, UDS pending upon requested evaluation of patient, ethyl alcohol level 4. Hospital Course: 1. Acute opiate ofwydoasos-27-edlv-old female presented to the hospital requesting detox from opiates. She feels much better today but wanted leave by 9 AM because she had a ride coming to pick her up and take her to my diet and get her out of the situation she was having Noreen, which was causing her to use drugs. Plan will be for outpatient follow-up in [place], she did not want to follow-up with [address] here in [place]. I also encouraged her to get treatment for her anxiety and depression. 2. Right lower extremity wound-is positive for she has an infected track christiano and she was on Keflex and Bactrim as an outpatient however she cannot relay how many pills she took and she states that the pill bottles are currently locked in her car which was impounded. We will place her on 5 more days of doxycycline as her wounds appear to be improving. Physical Exam Const alert, oriented x3 and no apparent distress General Appearance: cooperative HEENT normocephalic and moist oral mucous membranes Eyes PERRL, EOMs intact bilaterally and conjunctivae normal Neck supple and no JVD Resp normal respiratory effort, no retractions, no use of accessory muscles and clear to auscultation bilaterally Auscultation: Negative for crackles, rales, rhonchi or wheezes Cardio regular rate, regular rhythm, S1 normal heart sound, S2 normal heart sound and no murmurs GI soft to palpation, non-tender and non-distended; Negative for hepatosplenomegaly Extremity no clubbing, cyanosis or edema Skin Skin Narrative: Right lower extremity ulcer, redness is significantly improved. Appears to be infected tract site Neuro no focal motor deficits and no sensory deficits noted Psych affect normal Appearance: appropriate Weight / BMI Weight Weight: 207 lb 3.752 oz Body Mass Index (BMI) 32.4 ABG / Lab / Microbiology Data Result Diagrams: 01/15/21 05:55 01/15/21 05:55 D/C Instructions Discharge Diet: No restrictions Call your doctor if you observe: Fever of 101 or Higher, Shortness of breath, Dizziness, Swelling in the ankles, Chest pain and Increased palpitations (irregular heartbeat) Meaningful Use Info Meaningful Use Diagnoses (Choose all that apply): None applicable Discharge Plan Admission Admit Date/Time: 01/13/21 03:39 Attending Provider: Earl Ram Primary Care Provider: Anika Hatfield Discharge Orders/Prescriptions Prescriptions: New doxycycline monohydrate 100 mg Capsule 100 mg PO BID Qty: 10 RF: 0 Discontinued sulfamethoxazole-trimethoprim [Bactrim DS] 800-160 mg Tablet 1 tab PO BID RF: 0 cephalexin [Keflex] 500 mg Capsule 500 mg PO Q6H RF: 0 Referrals / Follow Up: Anika Hatfield MD [Primary Care Provider] - Disposition Disposition (needs filled in before D/C Order can be placed): Home, Self Care Charges/Coding Visit Charges Inpatient E&M: 31073 Disch Hosp
== END 2021-01-16 09:30 | disposition home or self-care (01) | DRG 773 ==
LOC: ED 03:33 → MS3 04:29
PROVIDERS: Student in an Organized Health Care Education/Training Program; Admitting Provider Family Medicine; Emergency Provider Emergency Medicine; Visit Provider Family Medicine
DX: F11.23 Opioid dependence with withdrawal (principal); F17.210 Nicotine dependence, cigarettes, uncomplicated; L02.611 Cutaneous abscess of right foot; E66.9 Obesity, unspecified; Z68.32 Body mass index [BMI] 32.0-32.9, adult; F41.9 Anxiety disorder, unspecified; F31.9 Bipolar disorder, unspecified; L03.115 Cellulitis of right lower limb; L03.113 Cellulitis of right upper limb
CPT/HCPCS: 36415; 80048; 80307; 82077; 83036; 84703; 85025; 86703; 86704; 86705; 86706; 86707; 86803; 87340; 87350; 87640; 97802; 99283; 99406